=== PATIENT | male | born 1970 | race Caucasian/White ===

== ENCOUNTER 2017-01-06 14:59 | Inpatient (IN) | payer BC, OTHER ==
[~2017-01-06] VITALS: Ht 182.9 cm; Wt 79.4 kg
[2017-01-06 16:00] VITALS: BP 152/96
--- NOTE | 2017-01-06 16:10 | NUR ---
PRE-ASSESSMENT: PT IN INTAKE. A/O X 4. GAIT IS STEADY. HE REPORTS SEASONAL ALLERGIES AND ASTHMA. HE STATES HE BROUGHT SYMBICORT AND VITAMINS AND SUPPLEMENTS FROM HOME. HE DENIES A SEIZURE HISTORY. HE DRINKS 2-3 BOTTLES OF WINE AND SAKE AND STATES HE HAS BEEN ON A 2 WEEK MARK AND HAS A LONG HISTORY OF TRYING TO GET SOBER. HE REPORTS HE WENT TO ER LAST NIGHT AND GOT FLUIDS AND AN RX FOR LIBRIUM 25MG AND HAS TAKEN 3 DOSES SINCE LAST NIGHT. HE STATES HE LAST DRANK AT 4PM ON 01/05. HE STATES HE WANTS TO STOP DRINKING BUT CANNOT DO IT ON HIS OWN. WILL ASSESS FURTHER ON UNIT ON UNIT.
[2017-01-06 16:23] LABS: ETHANOL < 3 MG/DL (0-0)
[2017-01-06 16:28] LABS: ALANINE AMINOTRANSFERASE 37 U/L (16-63); ALKALINE PHOSPHATASE 81 U/L (50-136); AMYLASE 86 U/L (25-115); ASPARTATE AMINOTRANSFERASE 40 U/L (15-37); BILIRUBIN,TOTAL 1.2 mg/dL (0.2-1.0); CARBON DIOXIDE 31 mmol/L (21-32); CHLORIDE 97 mmol/L (98-107); GLUCOSE 113 mg/dL (74-106); MAGNESIUM 1.9 mg/dL (1.8-2.4); POTASSIUM 3.5 mmol/L (3.5-5.1); TOTAL PROTEIN, SERUM 8.3 g/dL (6.4-8.2); UREA NITROGEN, BLOOD 6 mg/dL (7-18)
[2017-01-06 17:05] LABS: *AMPHETAMINE, URINE NEGATIVE (NEGATIVE); *BARBITURATE, URINE NEGATIVE (NEGATIVE); *CANNABINOID, URINE POSITIVE (NEGATIVE); *COCCAINE, URINE NEGATIVE (NEGATIVE); *OPIATE, URINE NEGATIVE (NEGATIVE); *PHENCYCLIDINE SCREEN,URINE NEGATIVE (NEGATIVE)
[2017-01-06] MEDS ORDERED: P-EP-92 PO (17:09)
[2017-01-06] MEDS ORDERED: BUDE10.2 INH (17:09)
[2017-01-06] MEDS ORDERED: MELA5TAB PO (17:09)
[2017-01-06] MEDS ORDERED: [UNRECOGNIZED DRUG - OTHER] (17:09)
[2017-01-06] MEDS ORDERED: 5-HY50CA2 PO (17:09)
--- NOTE | 2017-01-06 17:44 | NUR ---
ADMISSION: A 46 YO MALE ADMITTED FOR MEDICALLY SUPERVISED DETOX OF ETOH. PT STATES HE CANNOT STOP OR STAY STOPPED . HE STATES HE HAS BEEN ON A 2 WEEK MARK AND WAS DRINKING AROUND THE CLOCK 2-3 BOTTLES OF WINE DAILY. HE STATES HE HAS BEEN TRYING TO GET SOBER FOR 5 YEARS BUT HAS BEEN DRINKING DAILY SINCE MARCH 2016 WHEN HE RELAPSED AFTER HAVING 90 DAYS. . HE LAST DRANK YESTERDAY AT 4 PM. HE WENT TO ER LAST NIGHT AND THEY GAVE HIM FLUIDS AND AN RX FOR LIBRIUM WHICH HE TOOK 3 BETWEEN LAST NIGHT AND TODAY (75 MG TOTAL). HE ALSO REPORTS TAKING CBD OIL FOR INSOMNIA. HE REPORTS A HX OF INSOMNIA,ANXIETY AND DEPRESSION. HE REPORTS ASTHMA AND TAKES SYMBICORT BID WHICH HE BROUGHT WITH HIM TO OUR FACILITY. PT STATES HE HAS BEEN UNEMPLOYED FOR SOME TIME WHICH ADDS TO HIS ANXIETY AND INCREASED DRINKING. CIWA 9 ON ADMISSION WHICH ESCALATED TO 14 AND PRN ATIVAN GIVEN. HE ASKED IF HE COULD HAVE HIS SHOT OF THIAMINE LATER AND ORDERED FOR 21OO. HE DENIES A PCP. HE WAS AT [facility] AND [facility] IN 2015 FOR 30 DAYS. HE WAS ABLE TO STAY SOBER FOR 90 DAYS LAST YEAR.ORIENTED PT TO STAFF AND UNIT. ENCOURAGED INCREASED FLUIDS. OFFERED HOPE AND REASSURED PT THAT NURSING STAFF IS AVAILABLE 12/11. WILL CONTINUE TO PROVIDE SAFE AND SUPPORTIVE ENVIRONMENT.
--- NOTE | 2017-01-06 18:44 | NUR ---
END OF SHIFT: NEW ADMISSION. HE IS LAYING IN BED WATCHING TV WITH CALL TAMAYO IN REACH. HE IS COMPLIANT WITH INCREASING FLUIDS. HE STATES PRN ATIVAN WAS EFFECTIVE IN REDUCING S/S OF W/D AEB CIWA 8. WILL PASS SHIFT REPORT TO ONCOMING NIGHT NURSE.
[2017-01-06 19:08] LABS: HEMATOCRIT 43.4 % (40-50); HEMOGLOBIN 14.6 G/DL (14.0-18.0); WHITE BLOOD COUNT (AUTO) 8.7 K/UL (4.0-11.2)
[2017-01-06 19:09] LABS: BASOPHILS % (AUTO) 0.3 % (0.0-2.0); EOSINOPHILS % (AUTO) 0.3 % (0.0-7.0); LYMPHOCYTES # (AUTO) 1.2 K/UL (0.8-4.8); MEAN CORPUSCULAR HEMOGLOBIN 32.4 UUG (27.0-31.0); MEAN CORPUSCULAR HGB CONC 34 g/dL (32.0-37.0); MEAN CORPUSCULAR VOLUME 96.3 FL (82.0-92.0); MONOCYTES % (AUTO) 8.4 % (0.0-11.0); NEUTROPHILS # (AUTO) 6.7 K/UL (1.8-8.9); PLATELET COUNT (AUTO) 275 K/UL (150-450)
[2017-01-06 19:10] LABS: MONOCYTES # (AUTO) 0.7 K/UL (0.1-1.30)
[2017-01-06 20:00] VITALS: BP 128/90
--- NOTE | 2017-01-06 20:00 | NUR ---
START OF SHIFT NOTE RECEIVED REPORT FROM DAY SHIFT NURSE. PATIENT IS A 46 YEAR OLD MALE NEWLY ADMITTED FOR ETOH DEPENDENCE. PATIENT WAS PLACED ON 5 DAYS ATIVAN TAPER, STARTED TODAY. PATIENT HAS SEASONAL ALLERGIES . UPON ADMISSION, PATIENT DRINKS 2-3 BOTTLES OF WINE DAILY FOR A YEAR, BINGED FOR 2 WEEKS. SKIN INTACT. PATIENT WAS GIVEN PRN ATIVAN. LAST CIWA 8. PATIENT IN HIS ROOM, ALERT AND ORIENTED X 4. PATIENT REPORTS ANXIETY, HEADACHE 6/10, SLIGHT TREMORS NOTED, HOT AND COLD SWEATS, NO N/V , HE STATES HE STILL FEELS MUCH BETTER THAN EARLIER . ON FALL/SEIZURE PRECAUTION. SAFETY MEASURES IN PLACE. CALL LIGHT IN REACH. WILL CONTINUE TO MONITOR.
--- NOTE | 2017-01-06 21:15 | NUR ---
PRN MOTRIN ADMINISTRATION PATIENT C/O OF 09/29 HEADACHE. PRN MOTRIN GIVEN. WILL MONITOR FOR EFFECTIVENESS
--- NOTE | 2017-01-06 21:57 | NUR ---
PRN TRAZADONE ADMINISTRATION PATIENT REQUESTS FOR SLEEP AID. PRN TRAZADONE GIVEN. WILL MONITOR FOR EFFECTIVENESS
--- NOTE | 2017-01-06 22:15 | NUR ---
PRN MOTRIN RE-ASSESSMENT PATIENT STATES MOTRIN IS HELPFUL. NO PAIN AT THIS TIME. WILL CONTINUE TO MONITOR
--- NOTE | 2017-01-06 23:00 | NUR ---
PRN TRAZADONE RE-ASSESSMENT PATIENT ASLEEP AT THIS TIME. RESPIRATION EVEN AND UNLABORED. SAFETY MEASURES IN PLACE. CALL LIGHT IN REACH. WILL CONTINUE TO MONITOR.
[2017-01-07] VITALS: BP 113/70
[2017-01-07 04:00] VITALS: BP 109/64
--- NOTE | 2017-01-07 07:06 | NUR ---
END OF SHIFT NOTE PATIENT IS A 46 YEAR OLD MALE ADMITTED FOR ETOH DEPENDENCE. CONTINUE ON ATIVAN TAPER, TOLERATED WELL. NO ADVERSE PATIENT IN HIS PATIENT REPORTED ANXIETY, HEADACHE 6/10, SLIGHT TREMORS NOTED, HOT AND COLD SWEATS AND NO N/V . PATIENT WAS GIVEN PRN MOTRIN AT 2114 AND TRAZADONE AT 2156. PATIENT COMPLIANT WITH MEDICATION AND ENCOURAGE TO PARTICIPATE IN TREATMENT PLAN. REMAIN FREE OF INJURY. ON FALL/SEIZURE PRECAUTION. SAFETY MEASURES IN PLACE. CALL LIGHT IN REACH. WILL CONTINUE TO MONITOR. SLEPT 7 HOURS. FLUID INTAKE 1,000 ML. VOIDED X 3. NO BM. LAST CIWA 4.
[2017-01-07 08:00] VITALS: BP 108/74
--- NOTE | 2017-01-07 08:00 | NUR ---
START OF SHIFT: RECEIVED PT A/O X 4. HE REPORTS SLEEPING WELL BUT STATES HE HAD NIGHT SWEATS. HE IS TREMULOUS AND PRESENTS WITH ANXIOUS MOOD AND CONGRUENT AFFECT. HE REFUSES NICOTINE PATCH AND STATES MAYBE IN A COUPLE DAYS HE WILL START THE SMOKING CESSATION PROCESS. HE REPORTS ANXIETY AND RESTLESSNESS. CIWA 12. ATIVAN TAPER IN PROGRESS TO MANAGE S/S OF W/D.HE EXPRESSED FRUSTRATION ABOUT NOT HAVING SOME OF HIS PERSONAL THINGS FROM DOWNSTAIRS AND WANTS TO SPEAK WITH THE C.O.O. OFFERED SUPPORT. WILL CONTINUE TO PROVIDE SAFE AND SUPPORTIVE ENVIRONMENT.
[2017-01-07] MEDS ORDERED: POLY30DR OP (11:18)
[2017-01-07] MEDS ORDERED: [UNRECOGNIZED DRUG - OTHER] EACHEYE (11:18)
[2017-01-07 12:00] VITALS: BP 131/95
[2017-01-07 16:00] VITALS: BP 134/91
--- NOTE | 2017-01-07 18:39 | NUR ---
END OF SHIFT: PT CONTINUES ON ATIVAN TAPER. LAST CIWA 7. HE C/O INTERMITTENT ANXIETY AND HAD SOME MUSCLE PAIN IN CHEST AND LATERAL AREA.PRN MOTRIN GIVEN AND EFFECTIVE. HE WAS FOCUSED ON GETTING HIS TOILETRIES AND SOME OF HIS BELONGINGS BROUGHT UP FROM INTAKE. ALL NEEDS ATTENDED TO. PT ATTENDED GROUPS TODAY. WILL PASS SHIFT REPORT TO ONCOMING NIGHT NURSE.
[2017-01-07 20:00] VITALS: BP 133/97
--- NOTE | 2017-01-07 20:00 | NUR ---
START OF SHIFT NOTE RECEIVED REPORT FROM DAY SHIFT NURSE. CONTINUE PATIENT ON ATIVAN TAPER FOR ETOH DEPENDENCE, TOLERATED. NO ADVERSE REACTION. PATIENT HAS SEASONAL ALLERGY. NO SEIZURE HISTORY. PATIENT WAS GIVEN PRN FOR MUSCLE PAIN. LAST CIWA 7. PATIENT ALERT AND ORIENTED X 4. RESPIRATION EVEN AND UNLABORED. PATIENT REPORTS ANXIETY BUT HE STATES THAT HE FEELS MUCH BETTER NOW. ON FALL/SEIZURE PRECAUTION. SAFETY MEASURES IN PLACE. CALL LIGHT IN REACH. WILL CONTINUE TO MONITOR.
--- NOTE | 2017-01-08 | NUR ---
CIWA/VS PATIENT REFUSED VS. CIWA UNABLE TO ASSESS. RESPIRATION EVEN AND UNLABORED. RR 15. SAFETY MEASURES IN PLACE. CALL LIGHT IN REACH. WILL CONTINUE TO MONITOR.
--- NOTE | 2017-01-08 04:00 | NUR ---
CIWA/VS PATIENT REFUSED VS. CIWA UNABLE TO ASSESS. RESPIRATION EVEN AND UNLABORED. RR 15. SAFETY MEASURES IN PLACE. CALL LIGHT IN REACH. WILL CONTINUE TO MONITOR.
[2017-01-08 06:06] LABS: HEPATITIS B SURFACE AG Negative (Negative)
--- NOTE | 2017-01-08 06:58 | NUR ---
END OF SHIFT NOTE PATIENT CONTINUE ON ATIVAN TAPER FOR ETOH DEPENDENCE, TOLERATED. NO ADVERSE REACTION. PATIENT HAS SEASONAL ALLERGY. NO SEIZURE HISTORY. PATIENT REMAIN ALERT AND ORIENTED X 4. RESPIRATION EVEN AND UNLABORED. PATIENT REPORTED ANXIETY BUT HE STATES THAT HE FEELS MUCH BETTER . PATIENT WITH EPISODE OF AGITATION DURING SHIFT. RELAXATION TECHNIQUE PROVIDED AND POSITIVE ENCOURAGEMENT GIVEN. ON FALL/SEIZURE PRECAUTION. SAFETY MEASURES IN PLACE. CALL LIGHT IN REACH. WILL CONTINUE TO MONITOR. SLEPT 5 HOURS. FLUID INTAKE 1,000 ML. VOIDED X 3 . BM X 1. LAST CIWA 7.
--- NOTE | 2017-01-08 07:30 | NUR ---
START OF SHIFT Pt 46 y/o male admitted for etoh dependence. Pt received in room on bed with eyes closed resting, but easily arousable to name. Pt alert and oriented to name, place, and time. PErrla. Skin warm and slightly moist to touch. Respirations even and unlabored. It was reported that pt slept for 5 hours last night. Bed on lowest position with side rails x2 up for safety. No distress noted at this time.
[2017-01-08 08:02] VITALS: BP 104/61
--- NOTE | 2017-01-08 09:59 | NUR ---
MEDICATION Pt refusing ativan , claritin, and nicotine patch scheduled at 0900 until he speaks with .
[2017-01-08 12:00] VITALS: BP 121/67
--- NOTE | 2017-01-08 13:40 | NUR ---
PRN Pt with ciwa=8. Ativan 1 mg po prn per MD order given and tolerated well.
--- NOTE | 2017-01-08 15:40 | NUR ---
PRN EVAL Pt with ciwa=3.
[2017-01-08 18:54] VITALS: BP 119/70
--- NOTE | 2017-01-08 18:57 | NUR ---
END OF SHIFT Pt 46 y/o male admitted for etoh dependence. Pt alert and oriented to name, place, and time. PErrla. Skin warm and slightly moist to touch. Respirations even and unlabored. Bilateral hand tremors noted. Pt with periods of anxiety and agitation throughout the day. Pt observed mostly isolative to room with minimal peer interaction. Pt did not attend group activity. Pt selective with medications today. Bed on lowest position with side rails x2 up for safety. No distress noted at this time.
--- NOTE | 2017-01-08 19:05 | NUR ---
Start of shift note Received report from day shift nurse. Pt is a 46 yo male, A+Ox4, presenting to [facility] for ETOH/Marijuana. Pt has Seasonal Allergies, is on Full Code status, and on Regular diet. Pt has HX of Asthma, Insomnia, Anxiety, and depression. Pt is on Fall and Seizure precautions. Pt is on PRN Ativan, tolerated well. No s/s of distress noted at this time. Respirations even and unlabored. Will continue to monitor.
[2017-01-08 20:43] VITALS: BP 141/52
--- NOTE | 2017-01-08 21:13 | NUR ---
PRN Trazodone Pt c/o inability to sleep and requested for PRN Trazodone. Medication given and tolerated well. Will reassess within 1 HR. Will continue to monitor.
--- NOTE | 2017-01-08 22:10 | NUR ---
PRN Trazodone Reassessment Medication effective. Pt is resting well in bed. No s/s of ASE/distress noted at this time. Respirations even and unlabored. Will continue to monitor.
[2017-01-09 00:48] VITALS: BP 116/79
[2017-01-09 04:13] VITALS: BP 114/71
--- NOTE | 2017-01-09 06:44 | NUR ---
End of shift note Pt is a 46 yo male, A+Ox4, presenting to [facility] for ETOH/Marijuana. Pt has Seasonal Allergies, is on Full Code status, and on Regular diet. Pt has HX of Asthma, Insomnia, Anxiety, and depression. Pt is on Fall and Seizure precautions. Pt is on PRN Ativan, tolerated well. Pt was given PRN Trazodone @2112. Pt slept for a total of 5 HRS. Last CIWA: 3 @0400. No s/s of distress noted at this time. Respirations even and unlabored. Will endorse to day shift nurse.
[2017-01-09 08:00] VITALS: BP 127/89
--- NOTE | 2017-01-09 08:00 | NUR ---
START OF SHIFT NOTE 46 y.o. male, admitted to ETOH dependence. Hx asthma and insomnia, anxiety/depression. Fall and Seizure precautions in place. Allergies of seasonal allergies. Regular diet. Report received from night RN. Per night RN, last CIWA at 0400 was 3, Pt slept 5 hours, and also had episode of GERD. 0800, Pt with CIWA 9, anxious, standing and walking around room, not able to sit down for vitals and assessment. RN will give Ativan PRN. Pt also states he had episode x 2 last night of chest tightness and shortness of breath, but when the nurse came in to assess him he states he apparently was asleep. States he has these episodes at home and they are due to anxiety. Currently denies chest pain or tightness. Bed in low position and locked, call light in reach, safety measures in place. Will continue to monitor.
--- NOTE | 2017-01-09 10:03 | NUR ---
PRN MEDICATION REASSESSMENT CIWA 9 but visibly more relaxed and hand tremors decrease and verbalizes less anxiety. Addendum: 01/09/17 at 1104 by INGA EDWARDS RN Incorrect CIWA noted. CIWA was decreased to 7 at reassessment.
--- NOTE | 2017-01-09 10:47 | NUR ---
PRN MEDICATION ADMINISTRATION Ativan 1 mg PO PRN given for CIWA 9. Addendum: 01/09/17 at 1055 by INGA EDWARDS RN Time of medication administration incorrectly noted. Medication was given at 0903.
[2017-01-09 12:00] VITALS: BP 124/92
--- NOTE | 2017-01-09 12:10 | NUR ---
JOSE MWA 8 Pt refused PRN Ativan at this time. States he will wait until 1500 scheduled dose of Ativan.
[2017-01-09 16:00] VITALS: BP 128/93
--- NOTE | 2017-01-09 16:23 | NUR ---
PRN Pt stated has nicotine craving. Nicotine gum prn per MD order given and tolerated well.
--- NOTE | 2017-01-09 17:23 | NUR ---
PRN EVAL Pt states nicotine craving gum slightly effective.
--- NOTE | 2017-01-09 19:21 | NUR ---
END OF SHIFT Pt 46 y/o male admitted for etoh dependence. Pt alert and oriented to name, place, and time. Perrla. Skin warm and slightly moist to touch. Respirations even and unlabored. Bilateral hand tremors noted. Pt with some period of agitation this morning. Pt observed mostly isolative to room with minimal peer interaction. Pt attended group activity. Pt medication compliant and tolerated well. No ASE noted. Pt was seen by MD today. Bed on lowest position with side rails x2 up for safety. No distress noted at this time.
[2017-01-09 20:00] VITALS: BP 151/85
--- NOTE | 2017-01-09 20:00 | NUR ---
Start of Shift Note: Report received from day shift nurse. Pt is a 46M admitted on 01/06/17 for medically-supervised withdrawal from ETOH. Pt reports drinking 2-3 bottles of wine daily x 1 yr. Pt continues on an Ativan taper, scheduled to end 01/10/17 at 09:00. Pt received with last CIWA=11, and PRN Ativan 1mg x2 were administered during day shift. Pt is a full code. Pt reports seasonal allergies only. Pt is on a regular diet. PMHx: asthma, insomnia, anxiety, depression. Pt received in room and reports anxiety and diaphoresis; pt noted with fine tremor. Bed is in low position and locked, side rails up x2, call light is within reach. Will continue to monitor. Addendum: 01/10/17 at 0049 by GINNA HERNADEZ RN Pt admitted at age 46, and is now 47
--- NOTE | 2017-01-09 21:52 | NUR ---
PRN Trazodone and PRN Maalox: Patient complains of inability to sleep. Administered PRN Trazodone as ordered. Will reassess at end of shift. Patient complains of heartburn. Administered PRN Maalox as ordered. Will continue to monitor.
--- NOTE | 2017-01-09 23:00 | NUR ---
PRN Reassessment: Pt denies heartburn at this time. PRN Maalox effective.
--- NOTE | 2017-01-10 | NUR ---
V/S Refused, CIWA Deferred: Patient refuses 00:00 V/S. Patient educated on risks and benefits but still refused, stating "I want to sleep." CIWA is deferred for sleep. All safety precautions are in place. Will continue to monitor. Addendum: 01/10/17 at 0202 by GINNA HERNADEZ RN Amended: Links added.
--- NOTE | 2017-01-10 04:00 | NUR ---
Vitals Refused, CIWA Deferred: Patient refuses 04:00 vital signs assessment. Patient educated on risks and benefits but still refused. CIWA is deferred for sleep. All safety precautions are in place. Will continue to monitor. Addendum: 01/10/17 at 0409 by GINNA HERNADEZ RN Amended: Links added.
--- NOTE | 2017-01-10 07:19 | NUR ---
End of Shift Note: Pt is a 47M admitted to [facility] on 01/06/17 for medically-supervised withdrawal from ETOH. Pt reported a PMHx of asthma, insomnia, anxiety, and depression. Pt is a full code, reports seasonal allergies, and is on a regular diet. Pt reported drinking 2-3 bottles of wine daily for 1 yr. Pt continues on an Ativan taper, with last dose to be administered this morning. Scheduled medication regime effectively managed s/s of withdrawal this shift. Last CIWA=6 at 20:00 before taper medication administered. PRN Maalox was given for heartburn. V/S stable throughout shift. Total fluid intake this shift: 1980 ml; output: urine x 4 and BM x 1. PRN Trazodone was given for insomnia, which was effective and slept 7 hours this shift. Pt is currently in bed, all needs have been attended and met. Pt endorsed to day shift nurse.
[2017-01-10 08:00] VITALS: BP 101/64
--- NOTE | 2017-01-10 08:10 | NUR ---
START OF SHIFT: RECEIVED PT A/O X 4. HE STATES HE IS SLEEPING WELL AND REPORTS MILD ANXIETY. HE STATES HE IS MOTIVATED TO STAY SOBER AND HAS A BRIGHTER AFFECT. ATIVAN ADMINISTERED ORDERED. JOSE MWA 4. ENCOURAGED GROUP ATTENDANCE TO IMPROVE COPING SKILLS AND PREVENT RELAPSE. WILL CONTINUE TO MONITOR AND OFFER SUPPORT.
[2017-01-10 12:00] VITALS: BP 118/93
--- NOTE | 2017-01-10 12:15 | NUR ---
Therapist prompted client about group times. Client said he would attend groups today.
[2017-01-10 16:00] VITALS: BP 134/90
[2017-01-10] MEDS ORDERED: GABA-534 PO (18:34)
[2017-01-10] MEDS ORDERED: ESCI10TA PO (18:34)
[2017-01-10] MEDS ORDERED: TRAZ-144 PO (18:35)
[2017-01-10] MEDS ORDERED: NICO1PAT25 TD (18:35)
[2017-01-10] MEDS ORDERED: NICO4GUM38 BC (18:35)
[2017-01-10] MEDS ORDERED: PRAZ1CAP2 PO (18:35)
[2017-01-10] MEDS ORDERED: HYDR-3895 PO (18:35)
--- NOTE | 2017-01-10 19:11 | NUR ---
END OF SHIFT: PT COMPLETED ATIVAN TAPER. LAST CIWA 4.HE STATES HE HAS MILD INTERMITTENT ANXIETY HE IS SCHEDULED FOR DISCHARGE TOMORROW IN AM. HE STATES HE IS MOTIVATED TOWARD RECOVERY. PT ATTENDED GROUPS TODAY. WILL PASS SHIFT REPORT TO ONCOMING NIGHT NURSE.WILL PASS SHIFT REPORT TO ONCOMING NIGHT NURSE.
--- NOTE | 2017-01-10 19:47 | NUR ---
Patient is a 46 year old male admitted to [facility] on 01-06-17 for alcohol detox. Patient has completed a modified ativan taper without complications. Patient denies any physical complaints at change of shift. Last CIWA 4. VSS. Patient with past medical history of Asthma, Insomnia, anxiety and Depression. Denies SI or HI. He has seasonal allergies, is a full code, and on a regular diet. Fall and seizure precautions in place. Bed locked and in lowest position. Call light within reach.
[2017-01-10 20:00] VITALS: BP 122/81
--- NOTE | 2017-01-10 21:32 | NUR ---
PRN Medication Trazodone 100mg PO administered at 2131 for insomnia. Effect pending.
--- NOTE | 2017-01-10 22:32 | NUR ---
Reassessment of patient Patient reassessed one hour after Trazodone 100 mg PO given for insomnia. Patient remains awake, with inability to sleep.
--- NOTE | 2017-01-10 23:35 | NUR ---
PRN Medication Patient with complaints of anxiety/racing thoughts. Patient given clonidine 0.1 mg PO and vistaril 25mg PO at 2335 with effect pending.
[2017-01-11] VITALS: BP 112/76
--- NOTE | 2017-01-11 | NUR ---
PRN medication Patient requested and was given ROHTO ICE eye drops 1 gtt to each eye for redness/dry eyes at 0000. patient reported immediate effect. Will continue to monitor.
--- NOTE | 2017-01-11 00:35 | NUR ---
Reassessment of patient Patient reassessed one hour after PRN Clonidine 0.1 mg and PRN vistaril 25 mg PO given for anxiety/restlessness. Effectiveness noted as evidenced by no further anxiety. Patient resting comfortably in bed eyes closed. Respirations 16. Breathing even and unlabored.
--- NOTE | 2017-01-11 01:26 | NUR ---
Reassessment of patient Patient reassessed one hour after ROHTO ICE eye drops 1 gtt to each eye for redness/dry administered. Patient with no further redness or c/o dry eyes.
[2017-01-11 04:00] VITALS: BP 114/74
--- NOTE | 2017-01-11 04:00 | NUR ---
CIWA Deferred 0400 CIWA deferred due to patient sleeping/unable to assess CIWA score.
--- NOTE | 2017-01-11 07:00 | NUR ---
End of shift note Patient is a 47 year old male admitted to [facility] for ETOH detox on 01-06-17. He has completed a modified ativan taper without complications. Patient is a full code, on a regular diet. He has seasonal allergies. Past medical history includes Asthma, insomnia, anxiety and depression. Patient is on fall and seizure precautions. Patient vital signs at 2000 BP 122/81, P 82, R 16, SPO2 100% on RA, T 99.8. Temp rechecked 98.4. CIWA 4. Patient given Trazodone 100 mg PO at 2132 for insomnia with little effect. Patient with complaints of anxiety and racing thoughts. Patient given clonidine 0.1 mg PO and Vistaril 25 mg PO at 2335. Good effect noted. Patient with complaints of dry/red eyes. ROHTO ICE eye drops administered at 0000 with good effect. Vital signs at 0000 BP 112/76, P 72, R 18, SPO2 96% on RA. CIWA 3. Patient VS at 0400 BP 114/74, P 74, R 16, SPO2 98% on RA, T 97.6. Intake 750 ml, output 2 voids, Slept 6 hours. Report to AM nurse
[2017-01-11 08:00] VITALS: BP 120/80
--- NOTE | 2017-01-11 08:04 | NUR ---
START OF SHIFT: RECEIVED PT A/O X 4. HE STATES HE HAD A RESTLESSNESS NIGHT SLEEP AND REPORTS SOME ANXIETY. HE STATES HE IS MOTIVATED TO STAY SOBER BUT HAS CONCERNS ABOUT HIS INSOMNIA WHEN HE GETS HOME. ATIVAN TAPER COMPLETED. JESSICA 4. DISCHARGE IN PROGRESS FOR THIS AM. HE STATES HE WILL BE GOING TO 12 STEP MEETINGS AND IS MOTIVATED TOWARD RECOVERY. WILL CONTINUE TO MONITOR.
--- NOTE | 2017-01-11 10:00 | NUR ---
DISCHARGE: PT IS A/O X4. HE DENIES S/I AND H/I. HE STATES HE IS MOTIVATED TO STAY CLEAN AND FEELS ENTHUSIASTIC. BELONGINGS RETURNED. EDUCATED PT ON DISCHARGE INSTRUCTIONS AND MEDICATIONS. ION IMPLANT MACHINE OPERATOR ESCORTED PT TO [facility] WHERE HE WAS TRANSPORTED BY HIS OWN TRANSPORTATION TO HOME AT 0930.
== END 2017-01-11 09:35 | disposition home or self-care (01) | DRG 895 ==
LOC: SRC 14:59
PROVIDERS: ADMIT Internal Medicine; ATTEND Internal Medicine
PROC: HZ2ZZZZ Detoxification Services for Substance Abuse Treatment (ICD-10-PCS; principal; 2017-01-06)
PROC: HZ41ZZZ Group Counseling for Substance Abuse Treatment, Behavioral (ICD-10-PCS; 2017-01-07)
DX: F10.230 Alcohol dependence with withdrawal, uncomplicated (principal); I15.9 Secondary hypertension, unspecified; K70.10 Alcoholic hepatitis without ascites; F32.9 Major depressive disorder, single episode, unspecified; F12.90 Cannabis use, unspecified, uncomplicated; Y90.0 Blood alcohol level of less than 20 mg/100 ml; G47.00 Insomnia, unspecified; J45.20 Mild intermittent asthma, uncomplicated; G47.50 Parasomnia, unspecified; Z80.3 Family history of malignant neoplasm of breast; Z80.0 Family history of malignant neoplasm of digestive organs; Z81.8 Family history of other mental and behavioral disorders; Z81.1 Family history of alcohol abuse and dependence; F41.9 Anxiety disorder, unspecified; F17.210 Nicotine dependence, cigarettes, uncomplicated
CPT/HCPCS: 36415; 70030-TC; 80307; 80346; 80349; 83735; 85025; 86580; 86592; 86705; 86803; 87340; 87806; 90732; A4663; A9150; G0480; J3411

== ENCOUNTER 2017-01-25 16:56 | Inpatient (IN) | payer BC, OTHER ==
[~2017-01-25] VITALS: Ht 182.9 cm; Wt 77.1 kg
[~2017-01-25 16:56] MED LIST: BUDE10.2 INH; ESCI10TA PO; GABA-534 PO; HYDR-3895 PO; NICO1PAT25 TD; NICO4GUM38 BC; P-EP-92 PO; POLY30DR OP; PRAZ1CAP2 PO; TRAZ-144 PO
--- NOTE | 2017-01-25 17:45 | NUR ---
PRE ASSESSMENT Pt 47 y/o male admitted for etoh dependence. Pt alert and oriented to name, place, and time. Perrla. Skin warm and dry to touch. Respirations even and unlabored. No hand tremors noted. Pt with eyelids closed half way during interview. Pt states came from home. VS wnl. po=288/79 p=89 r=16 t=98.0 o2=96%@ra. Pt appears intoxicated, but is oriented to name, place, and time. No distress noted. Pt made aware of unit rules with acknowledgement. Addendum: 01/25/17 at 1835 by ROYAL GREWAL RN substance hx: etoh: wine po - 3 regular bottles daily x4 days. Last drink on 01/25/17 and had 1 bottle beer po- 24 oz. x3 daily x 4 days. last drink on 01/25/17 and had 3 bottles vodka po- Pt states very occasionally. Last drink on 01/25/17 and had 5th medical hx: Pt denies any sz history and medical history.
[2017-01-25] MEDS ORDERED: P-EP-92 PO (18:07)
[2017-01-25] MEDS ORDERED: ALBU8.5H8 IH (18:25)
--- NOTE | 2017-01-25 19:28 | NUR ---
END OF SHIFT Pt 47 y/o male admitted for etoh dependence. Pt alert and oriented to name, place, and time. Perrla. Skin warm and dry to touch. Respirations even and unlabored. Bilateral hand tremors noted slightly. Pt slightly anxious. Pt was seen by MD today. Pt medication compliant and tolerated well. No ASE noted. Bed on lowest position with side rails x 2 up for safety. Call light within reach. No distress noted at this time.
--- NOTE | 2017-01-25 19:29 | NUR ---
Admission note Pt is a 47 yo male, A+Ox4, presenting to [facility] for ETOH dependence. Pt has Seasonal allergies, is on Full code status, and on Regular diet. Pt is 6'0 in height and 170 LBS in weight. Pt has HX of Anxiety, depression, insomnia, Asthma, and Hernia SX. Pt has family HX of Breast cancer and Mastectomy from Mother, and Alcoholism, Liver disease, Prostate cancer, and Pancreatitis from Father. Pt has primary care provider named Anthony Crocker. Pt has been drinking Alcohol for 28 years (2 weeks currently), has reached a level of 3 bottles of wine and 6 beers/daily and "occasionally" 750ml Vodka, and last drink was 1 bottle of wine, 6 beers, and 750ml Vodka on 01-25-17 @1600. Pt has been taking Marijuana/CBD "edibles" for 2 weeks, has reached a level of 90mg/daily, and last dose was 90mg on 01-24-17 @2100. Pt is taking home medications as follows: Lexapro 10mg QD-last dose was 01-24-17, Gabapentin 300mg TID-last dose was 300mg on 01-25-17 @1600, and Trazodone 100mg QHS-last dose was 100mg on 01-24-17 @2100. Pt has HX of previous detox/rehab @ [facility] for 6 days in 12/2016 and continued sobriety for 4 days afterward before relapsing. This was the patients last time sober. Pt has been a cigarette smoker for 24 years and has reached a level of 20/daily. Pt appears moderately intoxicated upon admission but in stable condition. V/S WNL. No s/s of distress noted at this time. Respirations even and unlabored. Will continue to monitor.
[2017-01-25 19:45] LABS: *AMPHETAMINE, URINE NEGATIVE (NEGATIVE); *BARBITURATE, URINE NEGATIVE (NEGATIVE); *CANNABINOID, URINE POSITIVE (NEGATIVE); *COCCAINE, URINE NEGATIVE (NEGATIVE); *OPIATE, URINE NEGATIVE (NEGATIVE); *PHENCYCLIDINE SCREEN,URINE NEGATIVE (NEGATIVE)
[2017-01-25 20:16] VITALS: BP 136/89
[2017-01-25 20:46] LABS: BASOPHILS # (AUTO) 0.1 K/uL (0.0-8.0); BASOPHILS % (AUTO) 0.9 % (0.0-2.0); EOSINOPHILS # (AUTO) 0.1 K/uL (0.0-0.7); EOSINOPHILS % (AUTO) 1.3 % (0.0-7.0); HEMATOCRIT 49.2 % (40-50); HEMOGLOBIN 16.9 G/DL (14.0-18.0); LYMPHOCYTES # (AUTO) 3.5 K/UL (0.8-4.8); MEAN CORPUSCULAR HGB CONC 34 g/dL (32.0-37.0); MEAN CORPUSCULAR VOLUME 95.9 FL (82.0-92.0); MONOCYTES # (AUTO) 0.8 K/UL (0.1-1.30); NEUTROPHILS # (AUTO) 4.1 K/UL (1.8-8.9); NEUTROPHILS % (AUTO) 47.8 % (38.5-71.5); PLATELET COUNT (AUTO) 458 K/UL (150-450); RED BLOOD CELL COUNT(AUTO) 5.13 MIL/UL (4.7-6.1); WHITE BLOOD COUNT (AUTO) 8.6 K/UL (4.0-11.2)
[2017-01-25 20:52] LABS: BILIRUBIN,TOTAL 0.4 mg/dL (0.2-1.0); CREATININE 1.1 mg/dL (0.6-1.3); POTASSIUM 4.2 mmol/L (3.5-5.1); TOTAL PROTEIN, SERUM 8.1 g/dL (6.4-8.2)
--- NOTE | 2017-01-25 23:08 | NUR ---
PRN Trazodone and Zofran Pt c/o inability to sleep and nausea and requested for PRN Trazodone and Zofran. Medications given and tolerated well. Will reassess within 1 HR. Will continue to monitor.
[2017-01-26] VITALS (7 sets, daily range): BP systolic 119–130; BP diastolic 77–88
--- NOTE | 2017-01-26 00:08 | NUR ---
PRN Trazodone and Zofran Reassessment Medications effective. Pt is resting in bed at this time. No s/s of ASE/distress noted at this time. Respirations even and unlabored. Will continue to monitor.
--- NOTE | 2017-01-26 01:08 | NUR ---
PRN Ativan 2mg Pt c/o anxiety and noted with CIWA: 16. PRN Ativan 2mg given and tolerated well. Will reassess within 1 HR. Will continue to monitor.
--- NOTE | 2017-01-26 02:08 | NUR ---
PRN Ativan 2mg Reassessment Medication effective. Pt is resting well in bed with CIWA: 4. No s/s of ASE/distress noted at this time. Respirations even and unlabored. Will continue to monitor.
--- NOTE | 2017-01-26 06:57 | NUR ---
End of shift note Pt is a 47 yo male, A+Ox4, presenting to [facility] for ETOH dependence. Pt has Seasonal allergies, is on Full code status, and on Regular diet. Pt is on Fall and Seizure precautions. Pt has HX of Anxiety, depression, insomnia, Asthma, and Hernia SX. Pt is on 5 day Ativan taper, tolerated well. Pt was given PRN Trazodone and Zofran @2308 and PRN Ativan 2mg @0108. Pt slept for a total of 6 HRS. Last CIWA: 3 @0400. No s/s of distress noted at this time. Respirations even and unlabored. Will endorse to day shift nurse.
--- NOTE | 2017-01-26 07:30 | NUR ---
Start of shift note; Received report from night nurse. Patient is a 47 year old male admitted on 01/25/17 for ETOH dependence. Patient was placed on5 day Ativan taper. Patient reported history of anxiety, depression, insomnia, asthma, hernia surgery. Patient reported seasonal allergies, on full code, regular diet. Patient is on fall and seizure precaution. Will continue to monitor patient.
--- NOTE | 2017-01-26 09:25 | NUR ---
PRN medication; Patient reported increase in anxiety manifested by patient pacing back and forth in the room. PRN Vistaril 25mg PO given for anxiety. Will continue to monitor patient for effectiveness of medication. .
--- NOTE | 2017-01-26 09:30 | NUR ---
Nurse note; Patient refused to receive PPD, MD was notified, no new orders noted.
--- NOTE | 2017-01-26 10:25 | NUR ---
Re-assessment; Patient appears calm and comfortable at this time. PRN Vistaril noted to be effective.
--- NOTE | 2017-01-26 12:32 | NUR ---
Therapist encouraged client to come to group today. Client agreed that he would attend group.
--- NOTE | 2017-01-26 19:24 | NUR ---
End of shift note; Patient is AOX4. Patient is a 47 year old male admitted on 01/25/17 for ETOH dependence. Patient was placed on5 day Ativan taper. Patient reported history of anxiety, depression, insomnia, asthma, hernia surgery. Patient reported seasonal allergies, on full code, regular diet. Patient is on fall and seizure precaution.Patient remained compliant with treatment plan and medication regime. Met all needs.
--- NOTE | 2017-01-26 19:25 | NUR ---
Start of shift note Pt is a 47 yo male, A+Ox4, presenting to [facility] for ETOH dependence. Pt has Seasonal allergies, is on Full code status, and on Regular diet. Pt is on Fall and Seizure precautions. Pt has HX of Anxiety, depression, insomnia, Asthma, and Hernia SX. Pt is on 5 day Ativan taper, tolerated well. No s/s of distress noted at this time. Respirations even and unlabored. Will continue to monitor.
[2017-01-27 00:48] VITALS: BP 127/71
[2017-01-27 04:48] VITALS: BP 118/67
--- NOTE | 2017-01-27 06:56 | NUR ---
End of shift note Pt is a 47 yo male, A+Ox4, presenting to [facility] for ETOH dependence. Pt has Seasonal allergies, is on Full code status, and on Regular diet. Pt is on Fall and Seizure precautions. Pt has HX of Anxiety, depression, insomnia, Asthma, and Hernia SX. Pt is on 5 day Ativan taper, tolerated well. Pt slept for a total of 10 HRS. Last CIWA: 3 @0400. No s/s of distress noted at this time. Respirations even and unlabored. Will endorse to day shift nurse.
--- NOTE | 2017-01-27 07:29 | NUR ---
Start of shift note; Patient is AOX4. Patient is a 47 year old male admitted on 01/25/17 for ETOH dependence. Patient was placed on a 5 day Ativan taper. Patient reported history of anxiety, depression, insomnia, asthma, hernia surgery. Patient reported seasonal allergies, on full code, regular diet. Patient is on fall and seizure precaution. Patient slept for 10 hours. Patient's last CIWA is 3 at 0400. All safety measures secured. Will continue to monitor patient.
[2017-01-27 08:00] VITALS: BP 112/80
[2017-01-27 09:06] LABS: HEPATITIS B SURFACE AG Negative (Negative)
[2017-01-27 12:00] VITALS: BP 130/80
[2017-01-27 16:00] VITALS: BP 120/87
--- NOTE | 2017-01-27 17:39 | NUR ---
PRN medication; Patient is appears to be very anxious, pacing back and forth in his room. Non pharmacological relaxation techniques ineffective. Will continue to monitor patient for effectiveness of medication.
--- NOTE | 2017-01-27 18:26 | NUR ---
End of shift note; Patient is AOX4. Patient is a 47 year old male admitted on 01/25/17 for ETOH dependence. Patient was placed on a 5 day Ativan taper. Patient reported history of anxiety, depression, insomnia, asthma, hernia surgery. Patient reported seasonal allergies, on full code, regular diet. Patient is on fall and seizure precaution. Patient remained complaint with treatment plan and medication regime. Medications were effective in reducing withdrawal symptoms. Met all needs
--- NOTE | 2017-01-27 18:39 | NUR ---
Re-assessment; Patient appears calm and comfortable. PRN medication is effective.
--- NOTE | 2017-01-27 19:15 | NUR ---
Start of shift note Pt is a 47 yo male, A+Ox4, presenting to [facility] for ETOH dependence. Pt has Seasonal allergies, is on Full code status, and on Regular diet. Pt is on Fall and Seizure precautions. Pt has HX of Anxiety, depression, insomnia, Asthma, and Hernia SX. Pt is on 5 day Ativan taper, tolerated well. No s/s of distress noted at this time. Respirations even and unlabored. Will continue to monitor.
[2017-01-27 20:18] VITALS: BP 123/85
[2017-01-28 00:41] VITALS: BP 119/78
[2017-01-28 04:11] VITALS: BP 115/73
--- NOTE | 2017-01-28 06:53 | NUR ---
End of shift note Pt is a 47 yo male, A+Ox4, presenting to [facility] for ETOH dependence. Pt has Seasonal allergies, is on Full code status, and on Regular diet. Pt is on Fall and Seizure precautions. Pt has HX of Anxiety, depression, insomnia, Asthma, and Hernia SX. Pt is on 5 day Ativan taper, tolerated well. Pt slept for a total of 8 HRS. Last CIWA: 3 @0400. No s/s of distress noted at this time. Respirations even and unlabored. Will endorse to day shift nurse.
--- NOTE | 2017-01-28 07:46 | NUR ---
Start of shift note; Patient is AOX4. Patient is a 47 year old male admitted on 01/25/17 for ETOH dependence. Patient was placed on a 5 day Ativan taper, no adverse reactions noted. Patient reported history of anxiety, depression, insomnia, asthma, hernia surgery. Patient reported seasonal allergies, on full code, regular diet. Patient is on fall and seizure precaution. Patient slept for 8 hours. Patient's last CIWA is 3 at 0400. All safety measures secured. Will continue to monitor patient.
[2017-01-28 08:25] VITALS: BP 120/91
[2017-01-28 12:00] VITALS: BP 124/87
--- NOTE | 2017-01-28 13:59 | NUR ---
Therapist prompted client about group times. Client stated he will not be attending groups today because he does not feel well.
--- NOTE | 2017-01-28 15:33 | NUR ---
PRN medication; Patient appears very anxious d/t withdrawal symptoms and also complaining of headache/ back pain rated 6/10. PRN Vistaril 25 mg PO given for anxiety and PRN Motrin 400mg PO given for pain. Will closely monitor patient.
[2017-01-28 16:00] VITALS: BP 130/87
--- NOTE | 2017-01-28 16:33 | NUR ---
Re-assessment; Patient appears calm and comfortable. Patient denies pain /headache at this time. PRN Motrin and PRN Vistaril were both effective.
--- NOTE | 2017-01-28 18:17 | NUR ---
End of shift note; Patient is AOX4. Patient is a 47 year old male admitted on 01/25/17 for ETOH dependence. Patient was placed on a 5 day Ativan taper, no adverse reactions noted. Patient reported history of anxiety, depression, insomnia, asthma, hernia surgery. Patient reported seasonal allergies, on full code, regular diet. Patient is on fall and seizure precaution. Patient remained complaint with treatment plan and medication regime. Medications were effective in reducing withdrawal symptoms. Patient's last CIWA score is 2 at 1600. Met all needs
[2017-01-28 20:00] VITALS: BP 124/87
--- NOTE | 2017-01-28 20:00 | NUR ---
1999 Patient received awake, alert and ambulatory in [facility] [place] with steady gait. Patient returning to his room #303 from [facility] group in recreation room. Patient responds to nurse's greeting and introduction with a facial frown, brief eye contact and a flat, " What's your name again? " The group tonight was bulls---, useless". Patient's color is pink and his skin is clean, warm, dry and intact. Patient is oriented to person, place, day, date, time and his personal situation. Patient denies any pain or other discomfort at this time. Patient states that he is eating his Regular diet meal trays and taking various fluids ad radha with no gastric issues. Vital signs are: 98.3-79-16 124/87, O2 Sat 99%, CIWA 2. Patient was admitted on 01/25/17 for Alcohol withdrawal and he is currently on a 5-Day Ativan medication taper, which he is apparently tolerating well thus far. Patient is cooperative for the most part when interacting with nurse, however his overall mood/affect/attitude is somewhat depressed, flat, annoyed and also slightly hostile in some verbal responses. Fall/seizure precautions in place. No requests voiced. Bed is locked and in lowest position, bed rails are up X 2 and call light on patient's bed.
--- NOTE | 2017-01-29 | NUR ---
Patient refused to be awakened for V/S, CIWA to be done at this time.
--- NOTE | 2017-01-29 04:00 | NUR ---
Patient sleeping soundly and he refuses to be awakened for V/S, CIWA to be done at this time.
--- NOTE | 2017-01-29 06:30 | NUR ---
0630 Patient slept a total of 9 hours and he had 2 voids and no stools. Total intake was 790 ml p.o. No prn medications given this shift. V/SS afebrile, last CIWA 2. Patient is presently sleeping comfortably in stable condition with eyes closed and respirations unlabored at 12
[2017-01-29 08:00] VITALS: BP 120/86
--- NOTE | 2017-01-29 09:14 | NUR ---
Start of shift note; Patient is AOX4. Patient is a 47 year old male admitted on 01/25/17 for ETOH dependence. Patient was placed on a 5 day Ativan taper, no adverse reactions noted. Patient reported history of anxiety, depression, insomnia, asthma, hernia surgery. Patient reported seasonal allergies, on full code, regular diet. Patient is on fall and seizure precaution. Patient slept for 9 hours. Patient's last CIWA is 2 at 0400. All safety measures secured. Will continue to monitor patient.
[2017-01-29 12:00] VITALS: BP 128/80
--- NOTE | 2017-01-29 13:15 | NUR ---
Re-assessment; Patient's current CIWA score is 8 symptoms manifested by agitation, restlessness, chills and anxiety. MD ordered one time dose of Ativan 1mg PO for withdrawal symptoms. Will continue to monitor patient. Addendum: 01/29/17 at 1534 by XAVIER ESCOBAR LVN Clarification: PRN medication.
--- NOTE | 2017-01-29 14:15 | NUR ---
Re-assessment; Patient was re-assessed with current CIWA score of 5. Medication was effective in reducing withdrawal symptoms.
[2017-01-29 16:00] VITALS: BP 120/87
--- NOTE | 2017-01-29 16:05 | NUR ---
Therapist prompted client about group times this morning. Client stated he is feeling better today and reported he would be in all groups.
--- NOTE | 2017-01-29 18:07 | NUR ---
End of shift note; Patient is AOX4. Patient is a 47 year old male admitted on 01/25/17 for ETOH dependence. Patient was placed on a 5 day Ativan taper, no adverse reactions noted. Patient reported history of anxiety, depression, insomnia, asthma, hernia surgery. Patient reported seasonal allergies, on full code, regular diet. Patient is on fall and seizure precaution. Patient remained complaint with treatment plan and medication regime. Medications were effective in reducing withdrawal symptoms. Patient's last CIWA score is 5 at 1600. Patient participated in group therapies and activities. Met all needs
[2017-01-29 20:00] VITALS: BP 106/77
--- NOTE | 2017-01-29 20:00 | NUR ---
1999 Patient received awake, alert and just returning to his room #303 from [facility] group in recreation room. Gait is steady. Upon seeing nurse, patient states, " Hello, are you my nurse tonight?" Patient is oriented to person, place, day, date, time and his personal situation. Patient denies any pain or other discomfort presently and he states that he continues to eat his regular diet meal trays, take various fluids ad radha, attend [facility] groups regularly and follow his therapeutic plan as best he can, with no present issues noted at this time. Vital signs are: 98.8-87-18 106/77, O2 Sat 98%, CIWA 3 . Patient voices no requests at this time. Fall/seizure precautions continue. Patient was admitted on 01/25/17 for Alcohol withdrawal and he is currently on a 5-Day Ativan medication taper, which he has apparently been tolerating well thus far. Patient is cooperative and verbally appropriate when interacting with nurse, though his overall mood/affect is somewhat withdrawn and flat, as well as slightly anxious at the same time. Patient's body movements are somewhat but WNL. Bed is locked and in lowest position of comfort, bed rails are up X 1 and call light on patient's bed, within his easy reach.
--- NOTE | 2017-01-30 | NUR ---
Patient sleeping soundly and refused to be awakened for V/S, CIWA to be done at this time.
--- NOTE | 2017-01-30 04:00 | NUR ---
Patient sleeping soundly and refuses to be awakened at this time for V/S, CIWA.
--- NOTE | 2017-01-30 06:30 | NUR ---
0630 Patient slept a total of 7 hours and he had 4 voids and 2 stools. Total intake was 3,600 ml p.o. No prn medications given this shift. V/SS afebrile, last CIWA was 3. Patient is presently resting comfortably in stable condition with eyes closed and respirations unlabored at 12.
--- NOTE | 2017-01-30 07:21 | NUR ---
Start of shift note; Patient is AOX4. Patient is a 47 year old male admitted on 01/25/17 for ETOH dependence. Patient was placed on a 5 day Ativan taper, no adverse reactions noted. Patient reported history of anxiety, depression, insomnia, asthma, hernia surgery. Patient reported seasonal allergies, on full code, regular diet. Patient is on fall and seizure precaution. Patient slept for 8 hours. All safety measures secured. Will continue to monitor patient.
[2017-01-30 08:00] VITALS: BP 119/83
[2017-01-30 12:00] VITALS: BP 125/82
[2017-01-30] MEDS ORDERED: ESCI10TA PO (13:19)
[2017-01-30] MEDS ORDERED: HYDR-3895 PO (13:19)
[2017-01-30] MEDS ORDERED: GABA-534 PO (13:19)
[2017-01-30] MEDS ORDERED: ACAM333T8 PO (13:19)
[2017-01-30] MEDS ORDERED: DOXE25CA18 PO (13:19)
[2017-01-30] MEDS ORDERED: PROP20TA22 PO (13:19)
--- NOTE | 2017-01-30 15:56 | NUR ---
PRN medication; PRN ProAir albuterol given for SOB. Will closely monitor patient.
[2017-01-30 16:00] VITALS: BP 112/83
--- NOTE | 2017-01-30 16:56 | NUR ---
Re-assessment; Re-assessed patient, no further SOB noted. PRN medication is effective.
--- NOTE | 2017-01-30 18:04 | NUR ---
End of shift note; Patient is AOX4. Patient is a 47 year old male admitted on 01/25/17 for ETOH dependence. Patient was placed on a 5 day Ativan taper, no adverse reactions noted. Patient reported history of anxiety, depression, insomnia, asthma, hernia surgery. Patient reported seasonal allergies, on full code, regular diet. Patient is on fall and seizure precaution. Patient remained complaint with treatment plan and medication regime. Medications were effective in reducing withdrawal symptoms. Patient's last CIWA score is 3 at 1600. Patient participated in group therapies and activities. Patient is medically cleared for discharge tomorrow. Met all needs
[2017-01-30 20:00] VITALS: BP 133/83
--- NOTE | 2017-01-30 20:00 | NUR ---
Start of Shift Note: Report received from day shift nurse. Pt is a 47M admitted on 01/25/17 for medically-supervised withdrawal from ETOH. Pt reports drinking three bottles of wine, three 24-oz beers, and vodka occasionally for four days. Pt has completed a 5-day Ativan taper and is to discharge tomorrow. Pt received with last CIWA=3, and PRN Albuterol was administered during day shift. Pt is a full code. Pt reports seasonal allergies only. Pt is on a regular diet. PMHx: asthma, insomnia, anxiety, depression. Pt received in room and reports mild anxiety; pt noted with fine tremor. Bed is in low position and locked, side rails up x2, call light is within reach. Will continue to monitor. Addendum: 01/30/17 at 2153 by GINNA HERNADEZ RN EDIT: pt is noted to be diaphoretic, no tremor noted.
--- NOTE | 2017-01-31 | NUR ---
Vitals Refused, CIWA Deferred: Patient refuses 00:00 vital signs for sleep. Patient educated on risks and benefits but still refused. CIWA is deferred for sleep. All safety precautions are in place. Will continue to monitor. Addendum: 01/31/17 at 0207 by GINNA HERNADEZ RN Amended: Links added.
[2017-01-31 04:00] VITALS: BP 116/90
--- NOTE | 2017-01-31 06:52 | NUR ---
End of Shift Note: Pt is a 47M admitted to [facility] on 01/25/17 for medically-supervised withdrawal from ETOH. Pt reported a PMHx of asthma, insomnia, anxiety, and depression. Pt is a full code. Pt reports seasonal allergies. Pt is on a regular diet. Pt reported drinking three bottles of wine, three 24-oz beers, and vodka occasionally for four days. Pt has completed a 5-day Ativan taper and is to discharge today. Scheduled medication regime managed s/s of withdrawal this shift, and no PRN medications were required. Last CIWA=4 at 20:00. V/S stable throughout shift. Total fluid intake this shift: 1855 ml; output: urine x 3 and BM x 2 Pt is currently in bed and slept 5 hours this shift. All needs have been attended and met. Pt endorsed to day shift nurse.
--- NOTE | 2017-01-31 07:30 | NUR ---
START OF SHIFT Pt 47 y/o male admitted for etoh dependence. Pt received standing in hallway. Pt alert and oriented to name, place, and time. Perr[place]. Skin warm and dry to touch. Respirations even and unlabored. No hand tremors noted. Pt appears slightly anxious and expressed he is eager to discharged. It was reported that pt slept for 5 hours last night. Bed on lowest position with side rails x2 up for safety. Call light within reach. No distress noted at this time. Pt is scheduled to be discharged today.
[2017-01-31 08:16] VITALS: BP 132/82
--- NOTE | 2017-01-31 08:35 | NUR ---
DISCHARGE Pt 47 y/o male admitted for etoh dependence. Pt discharged home. Pt alert and oriented to name, place, and time. P[place]. Skin warm and dry to touch. Respirations even and unlabored. No hand tremors noted. Pt excited about being discharged. Prescriptions, discharge papers, and home medications packed in pt bag. No Belongings in cabinet noted. Pt home medications in cassette packed in pt bag. No distress noted.
== END 2017-01-31 08:35 | disposition home or self-care (01) | DRG 895 ==
LOC: SRC 16:56
PROVIDERS: ADMIT Internal Medicine; ATTEND Internal Medicine
PROC: HZ2ZZZZ Detoxification Services for Substance Abuse Treatment (ICD-10-PCS; principal; 2017-01-25)
PROC: HZ41ZZZ Group Counseling for Substance Abuse Treatment, Behavioral (ICD-10-PCS; 2017-01-26)
DX: F10.230 Alcohol dependence with withdrawal, uncomplicated (principal); K85.20 Alcohol induced acute pancreatitis without necrosis or infection; F33.2 Major depressive disorder, recurrent severe without psychotic features; Y90.9 Presence of alcohol in blood, level not specified; G47.00 Insomnia, unspecified; G47.50 Parasomnia, unspecified; F17.210 Nicotine dependence, cigarettes, uncomplicated; J45.20 Mild intermittent asthma, uncomplicated; Z81.1 Family history of alcohol abuse and dependence; Z80.3 Family history of malignant neoplasm of breast; Z84.2 Family history of other diseases of the genitourinary system; Z79.899 Other long term (current) drug therapy; Z80.0 Family history of malignant neoplasm of digestive organs; F12.90 Cannabis use, unspecified, uncomplicated
CPT/HCPCS: 36415; 70030-TC; 80307; 80349; 83735; 85025; 86580; 86592; 86705; 86803; 87340; 87806; G0480; J3411; Q0162